=== PATIENT | female | born 1975 | race African-American/Black ===

== ENCOUNTER 2018-10-05 00:10 | Emergency (ER) | payer OTHER ==
--- NOTE | 2018-10-05 02:04 | PDOC ---
History of Present Illness - General Chief Complaint: Weakness Stated Complaint: WEAKNESS,2 MONTHS Time Seen by Provider: 10/05/18 02:04 History Source: Patient Exam Limitations: No Limitations - History of Present Illness Initial Comments: 10/05/18 02:58 43 yo F with a hx of anemia, gestation HTN, and gestational DM presents to the emergency department with weakness for the past 6 days. Per the patient, she was evaluated at [facility] 3 days ago with her first US that showed a single IUP at approximately 7 weeks GA. Prior to that visit, she had vomited NBNB multiple times each day without a hx of hyperemesis gravidarum. Per the patient, she has had persistent nausea, but denies vomiting. She states she has felt geenral weakness persisting since ED visit. Denies the following: visual changes, ears/nose/throat pain, recent sick contacts, recent travels, chest pain, sOB, dysuria, hematuria, vaginal bleeding, abdominal pain, vaginal discharge, leg pain/swelling. She endorses fever and chills. Shx: None Allergies: NKDA Social: Endorses tobacco smoking. Denies substance abuse and alcohol use. Past History - Past Medical History Allergies/Adverse Reactions: Allergies Allergy/AdvReac Type Severity Reaction Status Date / Time latex Allergy Intermediate Rash Verified 10/05/18 02:13 Latex, Natural Rubber Allergy Rash Verified 10/05/18 02:13 Home Medications: Ambulatory Orders Pyridoxine HCl (Vitamin B6) [Pyridoxine HCl] 25 mg PO BID PRN #20 tablet Asthma: No Cancer: No Cardiac Disorders: No Diabetes: No HTN: Yes (IN PREVIOUS ) Seizures: No Thyroid Disease: No - Immunization History Immunization Up to Date: Yes - Suicide/Smoking/Psychosocial Hx Smoking History: Former smoker Have you smoked in the past 12 months: Yes Number of Cigarettes Smoked Daily: 4 If you are a former smoker, when did you quit?: 4MONTHS AGO 'Breaking Loose' booklet given: 11/27/13 Hx Alcohol Use: No Drug/Substance Use Hx: Yes Substance Use Type: None Hx Substance Use Treatment: No Review of Systems - Review of Systems Able to Perform ROS?: Yes Is the patient limited Ghanaian proficient: No Constitutional: Yes: Chills, Fever, Weakness. No: Diaphoresis HEENTM: No: Eye Pain, Recent change in vision, Ear Pain, Nose Pain, Throat Pain , Mouth Pain Respiratory: No: Cough, Shortness of Breath, Hemoptysis Cardiac (ROS): No: Chest Pain, Lightheadedness, Palpitations ABD/GI: Yes: Poor Appetite, Poor Fluid Intake. No: Constipated, Diarrhea, Nausea, Rectal Bleeding, Vomiting, Tarry Stools : No: Burning, Dysuria, Hematuria, Urgency Musculoskeletal: No: Back Pain, Joint Pain, Neck Pain Integumentary: No: Bruising, Erythema, Rash Neurological: No: Headache, Numbness, Tingling, Tremors, Ataxia, Dizziness Psychiatric: No: Change in Appetite Endocrine: No: Unexplained Weight Gain Hematologic/Lymphatic: Yes: Anemia (hx of anemia) *Physical Exam - Physical Exam General Appearance: Yes: Nourished, Appropriately Dressed. No: Apparent Distress, Alcohol on Breath, Intoxicated HEENT: positive: EOMI, ELOISE, Normal ENT Inspection, Normal Voice, Symmetrical, TMs Normal, Pharynx Normal, Hearing Grossly Normal. negative: Pale Conjunctivae , Scleral Icterus (R), Scleral Icterus (L), Muffled/Hoarse voice, Pharyngeal Erythema, Tonsillar Exudate, Tonsillar Erythema, Nasal Congestion, Rhinorrhea, Excessive drooling Neck: positive: Trachea midline, Supple. negative: Tender, Lymphadenopathy (R) , Lymphadenopathy (L), Tender lateral, Tender midline Respiratory/Chest: positive: Lungs Clear, Normal Breath Sounds. negative: Chest Tender, Respiratory Distress, Accessory Muscle Use, Crackles, Rales, Rhonchi, Stridor, Wheezing Cardiovascular: positive: Regular Rhythm, Regular Rate, S1, S2. negative: JVD, Systolic Murmur Gastrointestinal/Abdominal: positive: Normal Bowel Sounds, Flat, Soft. negative : Tender, Guarding, Rebound Rectal Exam: positive: deferred Lymphatic: negative: Adenopathy Musculoskeletal: positive: Normal Inspection. negative: CVA Tenderness, Vertebral Tenderness Extremity: positive: Normal Capillary Refill, Normal Inspection, Normal Range of Motion. negative: Tender, Swelling, Calf Tenderness Integumentary: positive: Normal Color, Dry, Warm. negative: Diaphoresis, Hives , Rash, Swelling Neurologic: positive: crew chief II-XII NML intact, Fully Oriented, Alert, Normal Mood/ Affect, Normal Response, Motor Strength 5/5. negative: EOM Palsy, Facial Droop , Sensory Deficit ED Treatment Course - LABORATORY CBC & Chemistry Diagram: 10/05/18 04:55 10/05/18 04:55 Medical Decision Making - Medical Decision Making 43 yo F with a hx of anemia, gestation HTN, and gestational DM presents to the emergency department with weakness for the past 6 days. Initial vitals: Initial Vital Signs Temp Pulse Resp BP Pulse Ox 98.5 F 57 L 19 126/67 100 10/05/18 00:10 10/05/18 00:10 10/05/18 00:10 10/05/18 00:10 10/05/18 00:10 Work up: ddx: infectious etiology (UTI vs URI vs influenza) vs electrolyte abnormality vs malnutrition vs dehydration possibly secondary to hyperemesis gravidarum that she experienced prior to the US. Laboratory Tests 10/05/18 10/05/18 10/05/18 04:55 04:55 04:55 WBC 7.3 RBC 3.38 L Hgb 11.6 Hct 32.8 MCV 97.1 H MCH 34.4 H MCHC 35.4 RDW 13.9 Plt Count 171 D MPV 9.4 Absolute Neuts (auto) 4.8 Neutrophils % 65.5 Lymphocytes % 25.4 D Monocytes % 8.4 Eosinophils % 0.3 Basophils % 0.4 Nucleated RBC % 0 Sodium 134 L Potassium 3.7 Chloride 105 Carbon Dioxide 24 Anion Gap 5 L BUN 5 L Creatinine 0.5 L Creat Clearance w eGFR 134.66 Random Glucose 83 Calcium 8.6 Total Bilirubin 0.3 AST 11 L ALT 21 Alkaline Phosphatase 44 L Troponin I < 0.02 Total Protein 6.7 Albumin 3.4 Beta HCG, Quant 251631.3 Urine Color Urine Appearance Urine pH Ur Specific [place] Urine Protein Urine Glucose (UA) Urine Ketones Urine Blood Urine Nitrite Urine Bilirubin Urine Urobilinogen Ur Leukocyte Esterase Influenza A (Rapid) Influenza B (Rapid) Blood Type A POSITIVE Antibody Screen Negative 10/05/18 10/05/18 05:20 06:33 WBC RBC Hgb Hct MCV MCH MCHC RDW Plt Count MPV Absolute Neuts (auto) Neutrophils % Lymphocytes % Monocytes % Eosinophils % Basophils % Nucleated RBC % Sodium Potassium Chloride Carbon Dioxide Anion Gap BUN Creatinine Creat Clearance w eGFR Random Glucose Calcium Total Bilirubin AST ALT Alkaline Phosphatase Troponin I Total Protein Albumin Beta HCG, Quant Urine Color Yellow Urine Appearance Clear Urine pH 7.0 D Ur Specific [place] 1.006 L Urine Protein Negative Urine Glucose (UA) Negative Urine Ketones Negative Urine Blood Negative Urine Nitrite Negative Urine Bilirubin Negative Urine Urobilinogen 0.2 Ur Leukocyte Esterase Negative Influenza A (Rapid) Negative Influenza B (Rapid) Negative Blood Type Antibody Screen Labs within normal limits. patient was given 1 L of NS,vitamin B6 for nausea control. the patient after the interventions had significant improvement in symptoms. EKgshows NSR without ST elevations, depressions and arrhythmia. 10/05/18 06:07 POCUS shows IUP single with FHR of 148 with yolk sac present. Patient wishes to be discharged. patient at the time of discharge had improvement in symptoms and states she will follow up with her primary medical doctor in 1 week. In addition, a referral for OBGYN was given to her and a prescription for anti-emetic sent to her pharmacy. She was able to ambulate on her own volition. Dispo:Discharge *DC/Admit/Observation/Transfer Diagnosis at time of Disposition: Weakness - Discharge Dispostion Disposition: HOME Decision to Admit order: No - Prescriptions Prescriptions: Pyridoxine HCl (Vitamin B6) [Pyridoxine HCl] 25 mg PO BID PRN #20 tablet PRN Reason: Nausea - Referrals Referrals: Roque Hodgson MD [Staff Physician] - - Patient Instructions Additional Instructions: you were seen in the emergency department for your weakness. your influenza test is still pending and we will call you with the positive result if it is. please follow up with a primary medical doctor in 1 week after discharge for follow up care and management. please follow up with the obgyn doctor in 72 hours for follow up care and management. please return to the emergency department if you have worsening pain or new concerning symptoms such as vaginal bleeding, intractable vomiting, and loss of consciousness. - Post Discharge Activity
[2018-10-05 02:13] VITALS: BP 126/67; PULSE 57; TEMP 98.5; BMI 24.0
--- NOTE | 2018-10-05 03:13 | PDOC ---
Attending Attestation - Resident Resident Name: Honorio Boyd - ED Attending Attestation I have performed the following: I have examined & evaluated the patient, The case was reviewed & discussed with the resident, I agree w/resident's findings & plan, Exceptions are as noted - HPI HPI: 10/05/18 03:11 43yo F currently 7-8 wks (by US at [facility] 2 days ago) presents to the ED with weakness, N/V for 6 days. +fevers/chills. Due to nausea, poor PO intake. Denies CP, SOB, abd pain, dysuria, frequency, urinary sxs. DEnies abdominal pain , vaginal bleeding or discharge. Active smoker - Physicial Exam PE: 10/05/18 03:11 agree with resident exam - Medical Decision Making 10/05/18 05:11 43yo F currently 7-8 wk presents to the ED with generalized weakness, fevers/chills. Labs, blood cx, flu swab, UA unremarkable. After 1L fluids and B6 , pt tolerating PO, feels much better and requests DC home. Return precautions given, pt to f/u with OB. I discussed the physical exam findings, ancillary test results and final diagnoses with the patient. I answered all of the patient's questions. The patient was satisfied with the care received and felt comfortable with the discharge plan and treatment plan. The patient will call their primary care physician within 24 hours to arrange follow-up and will return to the Emergency Department with any new, persistent or worsening symptoms.
[2018-10-05] MEDS ORDERED: SODIUM CHLORIDE 1,000 ML IV STA (03:39)
[2018-10-05] MEDS ORDERED: PYRIDOXINE HCL (B-6) 50 MG TABLET (FP) PO ONE (03:41)
[2018-10-05 05:33] LABS: URINE APPEARANCE CLEAR; URINE BILIRUBIN NEGATIVE (<2.0 mg/dL); URINE COLOR YELLOW; URINE GLUCOSE (UA) NEGATIVE (NEGATIVE); URINE KETONE NEGATIVE (NEGATIVE); URINE LEUK ESTERASE NEGATIVE (NEGATIVE); URINE NITRITE NEGATIVE (NEGATIVE); URINE PROTEIN NEGATIVE (NEGATIVE); URINE UROBILINOGEN 0.2 mg/dL (0.2-1.0)
[2018-10-05 05:45] LABS: ALBUMIN 3.4 g/dl (3.4-5.0); ALK PHOS 44 U/L (45-117); ANION GAP 5 MMOL/L (8-16); BILIRUBIN,TOTAL 0.3 mg/dL (0.2-1); BLOOD UREA NITROGEN 5 mg/dL (7-18); CALCIUM 8.6 mg/dL (8.5-10.1); CHLORIDE 105 mmol/L (98-107); CO2 24 mmol/L (21-32); CREATININE 0.5 mg/dL (0.55-1.3); GLUCOSE,RANDOM 83 mg/dL (74-106); POTASSIUM 3.7 mmol/L (3.5-5.1); SGOT/AST 11 U/L (15-37); SGPT/ALT 21 U/L (13-61); SODIUM 134 mmol/L (136-145); TOT PROT 6.7 g/dl (6.4-8.2)
[2018-10-05 06:35] LABS: BASO % 0.4 % (0-2.0); EOS % 0.3 % (0-4.5); HEMATOCRIT 32.8 % (32.4-45.2); HEMOGLOBIN 11.6 GM/dL (10.7-15.3); LYMPH % 25.4 % (8-40); MCH 34.4 pg (25.7-33.7); MCHC 35.4 g/dl (32.0-36.0); MEAN CELL VOLUME 97.1 fl (80-96); MEAN PLT VOLUME 9.4 fl (7.5-11.1); MONO % 8.4 % (3.8-10.2); NEUT % 65.5 % (42.8-82.8); PLATELET COUNT 171 K/MM3 (134-434); RBC 3.38 M/mm3 (3.60-5.2); RDW 13.9 % (11.6-15.6); WHITE BLOOD COUNT 7.3 K/mm3 (4.0-10.0)
--- NOTE | 2018-10-05 10:08 | EKG ---
Test Reason : Blood Pressure : / mmHG Vent. Rate : 051 BPM Atrial Rate : 051 BPM P-R Int : 190 ms QRS Dur : 076 ms QT Int : 414 ms P-R-T Axes : 046 024 032 degrees QTc Int : 381 ms SINUS BRADYCARDIA NONSPECIFIC T WAVE ABNORMALITY ABNORMAL ECG NO PREVIOUS ECGS AVAILABLE Confirmed by JIM CORRAL MD ([id number]) on 10/05/2018 10:08:09 AM Referred By: Confirmed By:JMI CORRAL MD
== END 2018-10-05 07:20 | disposition home or self-care (01) ==
LOC: JER 00:10
PROC: BY49ZZZ Ultrasonography of First Trimester, Single Fetus (ICD-10-PCS; principal; 2018-10-05)
PROC: 3E0337Z Introduction of Electrolytic and Water Balance Substance into Peripheral Vein, Percutaneous Approach (ICD-10-PCS; 2018-10-05)
DX: O26.891 Other specified pregnancy related conditions, first trimester (principal); R53.1 Weakness; Z3A.01 Less than 8 weeks gestation of pregnancy; Z86.32 Personal history of gestational diabetes
CPT/HCPCS: 36415; 76801-TC; 80053; 81003; 84484; 84702; 85025; 86850; 86900; 86901; 87086; 87804; 93005; 93010; 96360; 99283-25; J7030

== ENCOUNTER 2019-02-16 12:27 | Emergency (ER) | payer OTHER ==
[2019-02-16 12:34] VITALS: BMI 28.3
[2019-02-16] MEDS ORDERED: METOCLOPRAMIDE HCL INJECTION 10 MG/2 ML VIAL IVPUSH ONE (14:50)
[2019-02-16] MEDS ORDERED: ACETAMINOPHEN 1000 MG/100 ML VIAL (NON FORMULARY) IVPB ONE (14:50)
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
[2019-02-16] MEDS ORDERED: SODIUM CHLORIDE 0.9% 500 ML INFUS.BAG IV ONE (14:52)
[2019-02-16] MEDS ORDERED: METOCLOPRAMIDE HCL INJECTION 10 MG/2 ML VIAL ONE (14:57)
[2019-02-16] MEDS ORDERED: ACETAMINOPHEN INJECTION 100 ML IVPB ONE (14:57)
--- NOTE | 2019-02-16 15:02 | PDOC ---
Documentation entered by Everett De León SCRIBE, acting as scribe for Garfield Ramsey MD. Garfield Ramsey MD: This documentation has been prepared by the Sarthak zuñiga Xhesika, SCRIBE, under my direction and personally reviewed by me in its entirety. I confirm that the documentation accurately reflects all work, treatment, procedures, and medical decision making performed by me. 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 The patient describes the headache as starting at the back of her head and radiating to her frontal, fluctuating but generally present worsened in the morning when she wakes up. Patient notes she had previous identical headaches but never this prolonged. Patient notes she has been taking tylenol with relief of symptoms. Patient notes she is endorsing numerous amount of stresses in her personal life. Patient denies double vision/speech change/focal deficit, chest pain, shortness of breath, and dizziness. Denies fever, chills, cough, nausea, vomiting, diarrhea and constipation. Denies dysuria, frequency, urgency and hematuria. Allergies: coconut, peanut, shrimp, chocolate flavor, latex, etc. Social history: Endorses tobacco smoking. Denies substance abuse and alcohol use. - Physicial Exam PE: 02/16/19 15:01 Vital signs normal, afebrile and BP normal Well-appearing seated comfortably in stretcher with eyes open and speaking full sentences No scalp tenderness, neck supple Heart is regular, lungs are clear Abdomen is gravid NEURO: Mental status: The patient is alert and oriented x3. Cranial nerves: Cranial nerves II through XII are intact Motor: The upper extremities are 5 over 5 in all muscle groups. The lower extremities are 5 over 5 in all muscle groups. No pronator drift. Sensation: Sensation is intact to light touch throughout. Cerebellar: [id number] is normal in both upper extremities. Heel-knee- vazquez is normal in both lower extremities. Reflexes: 2+ and symmetric in the upper and lower extremities. Gait: Normal. Heel and toe walking are normal. Tandem gait is normal. - Medical Decision Making 02/16/19 15:01 43-year-old female second trimester with history of migraines presents with prolonged migraine exacerbation, one week in duration with gradual onset, no other red flags on history or physical exam. No evidence of preeclampsia on vitals, will check labs. Not consistent with venous sinus thrombosis, more consistent with underlying tension versus migraine headache. Check labs, urinalysis IV fluids, IV Tylenol, IV Reglan No indication for emergent imaging, patient has had brain imaging in the past which was normal Reassess
[2019-02-16 15:33] LABS: PH,URINE 7.5 (5.0-8.0); URINE APPEARANCE CLOUDY; URINE BILIRUBIN NEGATIVE (NEGATIVE); URINE COLOR YELLOW; URINE GLUCOSE (UA) NEGATIVE (NEGATIVE); URINE KETONE NEGATIVE (NEGATIVE); URINE LEUK ESTERASE NEGATIVE (NEGATIVE); URINE NITRITE NEGATIVE (NEGATIVE); URINE PROTEIN NEGATIVE (NEGATIVE); URINE UROBILINOGEN 0.2 mg/dL (0.2-1.0)
[2019-02-16 15:34] LABS: BASO % 0.4 % (0-2.0); EOS % 0.5 % (0-4.5); HEMATOCRIT 32.2 % (32.4-45.2); HEMOGLOBIN 10.8 GM/dL (10.7-15.3); LYMPH % 24.5 % (8-40); MCH 32.6 pg (25.7-33.7); MCHC 33.7 g/dl (32.0-36.0); MEAN CELL VOLUME 96.8 fl (80-96); MEAN PLT VOLUME 8.8 fl (7.5-11.1); MONO % 11.1 % (3.8-10.2); NEUT % 63.5 % (42.8-82.8); PLATELET COUNT 141 K/MM3 (134-434); RBC 3.32 M/mm3 (3.60-5.2); RDW 13.2 % (11.6-15.6); WHITE BLOOD COUNT 6.1 K/mm3 (4.0-10.0)
[2019-02-16 16:13] LABS: BILIRUBIN,TOTAL 0.1 mg/dL (0.2-1); BLOOD UREA NITROGEN 6.1 mg/dL (7-18); CALCIUM 9.5 mg/dL (8.5-10.1); CREATININE 0.5 mg/dL (0.55-1.3); POTASSIUM 4.2 mmol/L (3.5-5.1); TOT PROT 6.5 g/dl (6.4-8.2)
[2019-02-16 18:11] VITALS: BP 123/72; PULSE 64; TEMP 98.1
== END 2019-02-16 18:40 | disposition home or self-care (01) ==
LOC: JER 12:27
PROC: 3E033NZ Introduction of Analgesics, Hypnotics, Sedatives into Peripheral Vein, Percutaneous Approach (ICD-10-PCS; principal; 2019-02-16)
PROC: 3E033GC Introduction of Other Therapeutic Substance into Peripheral Vein, Percutaneous Approach (ICD-10-PCS; 2019-02-16)
PROC: 3E033GC Introduction of Other Therapeutic Substance into Peripheral Vein, Percutaneous Approach (ICD-10-PCS; 2019-02-16)
DX: O26.892 Other specified pregnancy related conditions, second trimester (principal); R51 Headache; Z3A.27 27 weeks gestation of pregnancy
CPT/HCPCS: 36415; 80053; 81003; 85025; 87086; 96374; 96375; 99283-25; J0131

== ENCOUNTER 2022-11-27 22:17 | Emergency (ER) | payer OTHER ==
[2022-11-27 22:24] VITALS: BP 160/90; PULSE 60; RESP 18; TEMP 98.3; BMI 24.1
[2022-11-27] MEDS ORDERED: KETOROLAC TROMETHAMINE 30 MG/1 ML VIAL IVPUSH ONE (22:58)
[2022-11-27] MEDS ORDERED: METOCLOPRAMIDE HCL INJECTION 10 MG/2 ML VIAL IVPUSH ONE (22:59)
[2022-11-27] MEDS ORDERED: KETOROLAC TROMETHAMINE 30 MG/1 ML VIAL ONE (23:03)
[2022-11-27] MEDS ORDERED: METOCLOPRAMIDE HCL INJECTION 10 MG/2 ML VIAL ONE (23:03)
== END 2022-11-28 01:10 | disposition home or self-care (01) ==
LOC: JER 22:17
PROC: 3E0333Z Introduction of Anti-inflammatory into Peripheral Vein, Percutaneous Approach (ICD-10-PCS; principal; 2022-11-27)
PROC: 3E033GC Introduction of Other Therapeutic Substance into Peripheral Vein, Percutaneous Approach (ICD-10-PCS; 2022-11-27)
DX: R51.9 Headache, unspecified (principal); H53.71 Glare sensitivity
CPT/HCPCS: 70450-TC; 99284-25

== ENCOUNTER 2022-12-06 23:39 | Emergency (ER) | payer OTHER ==
[2022-12-06 23:48] VITALS: BP 129/83; PULSE 78; RESP 18; TEMP 98; BMI 24.1
[2022-12-07] MEDS ORDERED: SODIUM CHLORIDE 0.9% 500 ML INFUS.BAG IV ONE (00:19)
[2022-12-07] MEDS ORDERED: METOCLOPRAMIDE HCL INJECTION 10 MG/2 ML VIAL IVPB ONE (00:19)
[2022-12-07] MEDS ORDERED: ACETAMINOPHEN 1000 MG/100 ML BAG IVPB ONE (00:19)
[2022-12-07] MEDS ORDERED: ACETAMINOPHEN INJECTION 100 ML IVPB ONE (00:23)
[2022-12-07] MEDS ORDERED: METOCLOPRAMIDE HCL INJECTION 10 MG/2 ML VIAL ONE (00:23)
[2022-12-07 01:09] LABS: BASO % 0.5 % (0-2.0); EOS % 0.5 % (0-4.5); HEMATOCRIT 33.9 % (32.4-45.2); HEMOGLOBIN 11.1 GM/dL (10.7-15.3); LYMPH % 21.3 % (8-40); MCH 30.2 pg (25.7-33.7); MCHC 32.7 g/dl (32.0-36.0); MEAN CELL VOLUME 92.3 fl (80-96); MEAN PLT VOLUME 8.7 fl (7.5-11.1); MONO % 8.3 % (3.8-10.2); NEUT % 69.4 % (42.8-82.8); PLATELET COUNT 192 10^3/uL (134-434); RBC 3.68 M/mm3 (3.60-5.2); RDW 16.2 % (11.6-15.6); WHITE BLOOD COUNT 7.6 K/mm3 (4.0-10.0)
[2022-12-07 01:26] LABS: POTASSIUM 3.9 mmol/L (3.5-5.1)
[2022-12-07 01:28] LABS: ALBUMIN 3.7 g/dl (3.4-5.0); CALCIUM 8.5 mg/dL (8.5-10.1)
[2022-12-07 01:29] LABS: BLOOD UREA NITROGEN 17.6 mg/dL (7-18)
[2022-12-07 01:31] LABS: CREATININE 0.7 mg/dL (0.55-1.3)
[2022-12-07 01:33] LABS: BILIRUBIN,TOTAL 0.2 mg/dL (0.2-1); TOT PROT 7.2 g/dl (6.4-8.2)
== END 2022-12-07 05:13 | disposition home or self-care (01) ==
LOC: JER 23:39
PROC: 3E033NZ Introduction of Analgesics, Hypnotics, Sedatives into Peripheral Vein, Percutaneous Approach (ICD-10-PCS; principal; 2022-12-07)
PROC: 3E033GC Introduction of Other Therapeutic Substance into Peripheral Vein, Percutaneous Approach (ICD-10-PCS; 2022-12-07)
DX: R51.9 Headache, unspecified (principal)
CPT/HCPCS: 36415; 80053; 85025; 96374; 96375; 99283-25

== ENCOUNTER 2022-12-13 20:51 | Emergency (ER) | payer OTHER ==
[2022-12-13 21:14] VITALS: BP 120/70; PULSE 67; RESP 18; TEMP 98.3; BMI 24.1
== END 2022-12-13 21:43 | disposition left against medical advice (07) ==
LOC: JER 20:51
DX: R51.9 Headache, unspecified (principal)
CPT/HCPCS: 99281-25